=== PATIENT | female | born 2000 | race Caucasian/White ===

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

== ENCOUNTER → 2020-04-21 | Outpatient (CLI) | payer OTHER | LOC: LAB FS 10:37 | PROVIDERS: ATTEND Family Medicine | DX: Z20.828 Contact with and (suspected) exposure to other viral communicable diseases (principal) | CPT/HCPCS: 87635 ==

== ENCOUNTER → 2020-10-07 | Outpatient (CLI) | payer OTHER | LOC: LAB FS 07:23 | PROVIDERS: ATTEND Family Medicine | DX: U07.1 COVID-19 (principal) | CPT/HCPCS: 36415; 86769 ==

== ENCOUNTER → 2020-12-06 | Outpatient (CLI) | payer OTHER ==
--- NOTE | 2020-12-06 15:15 | Diagnostic Imaging Report ---
INDICATION: Left knee pain Three views of the left knee show postoperative changes from ACL reconstruction. There is no fracture or dislocation. There is no appreciable joint effusion. IMPRESSION: Postoperative changes from ACL reconstruction. No acute abnormality is seen. Joint spaces are well-maintained. Dictated by: Dictated on workstation # [id number]
== END ==
LOC: RAD FS 14:20
PROVIDERS: ATTEND Nurse Practitioner
DX: M25.562 Pain in left knee (principal); Z98.890 Other specified postprocedural states
CPT/HCPCS: 73562

== ENCOUNTER 2020-12-24 05:32 | Outpatient (RCR) | payer OTHER ==
[~2020-12-24] VITALS: Ht 157.5 cm; Wt 54.5 kg
== END 2020-12-24 13:19 | disposition home or self-care (01) ==
LOC: PREOP 05:32
PROVIDERS: ATTEND Orthopaedic Surgery
DX: Z01.818 Encounter for other preprocedural examination (principal)

== ENCOUNTER 2020-12-28 12:17 | Emergency (ER) | payer OTHER ==
[~2020-12-28] VITALS: Ht 157.4 cm; Wt 54.5 kg
[2020-12-28 12:28] VITALS: BP 110/69
[2020-12-28] MEDS ORDERED: ACHD5005 PO (12:28)
[2020-12-28] MEDS ORDERED: CARB200T6 PO (12:28)
[2020-12-28] MEDS ORDERED: PRD50T PO (12:28)
--- NOTE | 2020-12-28 12:28 | ED General ---
General Stated Complaint: FACIAL PAIN History of Present Illness Date Seen by Provider: Dec 28, 2020 Time Seen by Provider: 12:23 Initial Comments 20 y/o healthy female presents w progressive pain over the past 1.5 months occurring intermittently in her left jaw. Shooting type pain, that has become very intense in severity and lasts from a few minutes to 20 minutes and gradually resolves. Precipitated occasionally by touching or chewing. No previous Hx of similar episodes. No dental pain, although she has seen her dentist 2x, during over the course of this pain without any abnormal dental findings on exam of x-rays. No ear pain, no nasal congestion, no mouth lesions or trouble swallowing. NO neck pain or swelling. no visual changes, no headaches. No recent illness, feve r or chills. Allergies and Home Medications Allergies Coded Allergies: ceftriaxone (Verified Allergy, Unknown, fever, 12/24/20) amoxicillin (Verified Adverse Reaction, Unknown, yeast infection, 12/24/20) Home Medications Carbamazepine 200 Mg Tablet, 200 MG PO BID Prescribed by: JADE AGRAWAL on 12/28/20 1228 Hydrocodone/Acetaminophen 1 Each Tablet, 1 EACH PO Q4H Prescribed by: JADE AGRAWAL on 12/28/20 1228 Prednisone 50 Mg Tab, 50 MG PO DAILY Prescribed by: JADE AGRAWAL on 12/28/20 1228 Patient Home Medication List Home Medication List Reviewed: Yes Review of Systems Review of Systems Constitutional: no symptoms reported, see HPI EENTM: see HPI, ear pain, other (left jaw pain - intermittent and severe); No ear discharge, No hearing loss, No blurred vision, No double vision, No eye pain, No tearing, No vision loss, No dental problems, No hoarseness, No mouth pain, No mouth swelling, No epistaxis, No nose congestion, No nose pain, No throat pain, No throat swelling Respiratory: no symptoms reported Cardiovascular: no symptoms reported Gastrointestinal: No nausea, No vomiting Musculoskeletal: No back pain, No joint pain, No neck pain Skin: no symptoms reported; No change in color, No lesions, No lumps, No pruritus, No rash Psychiatric/Neurological: See HPI; Denies Anxiety, Denies Depressed, Denies Headache, Denies Numbness, Denies Paresthesia, Denies Seizure, Denies Tingling, Denies Tremors, Denies Weakness Past Grqcfbn-Renfea-Fisztb Hx Past Med/Social Hx: Reviewed Nursing Past Med/Soc Hx Patient Social History Recent Hopitalizations: No Seasonal Allergies Seasonal Allergies: No Past Medical History Surgeries: Yes (bmt, L ACL repair) Respiratory: No Cardiac: No Neurological: Yes (hx of febrile seizures) Genitourinary: No Gastrointestinal: No Musculoskeletal: Yes Endocrine: No HEENT: No Cancer: No Psychosocial: No Integumentary: No Blood Disorders: No Physical Exam Vital Signs Capillary Refill : Height, Weight, BMI Height: '" Weight: lbs. oz. kg; 21.97 BMI Method: General Appearance: No Apparent Distress, WD/WN Eyes: Bilateral Eye Normal Inspection, Bilateral Eye PERRL, Bilateral Eye EOMI HEENT: PERRL/EOMI, TMs Normal, Normal ENT Inspection, Pharynx Normal, Moist Mucous Membranes; No Tonsillar Exudate, No Tonsillar Enlargement; Other (tenderness anterior to Left tragus of ear (origin of TG nerve) . NO palpable abnl, although sensitive area) Neck: Full Range of Motion, Normal Inspection, Non Tender, Supple Neurologic/Psychiatric: Alert, Oriented x3, No Motor/Sensory Deficits, Normal Mood/Affect, academic specialist II-XII Norm as Tested; No EOM Palsy, No Facial Droop, No Motor Weakness, No Sensory Deficit Skin: Normal Color, Warm/Dry; No Erythema, No Rash Lymphatic: No Adenopathy Progress/Results/Core Measures Suspected Sepsis SIRS Temperature: Pulse: Respiratory Rate: Blood Pressure / Mean: Results/Orders Vital Signs/I&O Capillary Refill : Departure Impression Primary Impression: Trigeminal neuralgia of left side of face Disposition: 01 HOME, SELF-CARE Condition: Stable Departure-Patient Inst. Decision time for Depature: 12:29 Referrals: FÉLIX RETAAN MD (PCP/Family) Primary Care Physician Patient Instructions: Trigeminal Neuralgia Add. Discharge Instructions: see your PCP in 2 to 3 days for a follow up exam Scripts Prednisone (Prednisone) 50 Mg Tab 50 MG PO DAILY, #5 TAB Prov: ROVENSTINEJADE L DO 12/28/20 Hydrocodone/Acetaminophen (Hydrocodone-Acetamin 5-325 mg) 1 Each Tablet 1 EACH PO Q4H for Abdominal Pain, #10 TAB Prov: ROVENSTINE,JADE L DO 12/28/20 Carbamazepine (Carbamazepine) 200 Mg Tablet 200 MG PO BID, #90 TAB 3 Refills Prov: JADE AGRAWAL DO 12/28/20 JADE AGRAWAL DO Dec 28, 2020 12:28
[2020-12-29] MEDS ORDERED: ONDA4TAB11 PO (11:18)
[2020-12-29] MEDS ORDERED: HYDR-3817 PO (11:18)
== END 2020-12-28 12:35 | disposition home or self-care (01) ==
LOC: EDUNIT# 12:17 → ER FS 12:21
DX: G50.0 Trigeminal neuralgia (principal); R56.00 Simple febrile convulsions; Z79.52 Long term (current) use of systemic steroids; Z88.1 Allergy status to other antibiotic agents
CPT/HCPCS: 99283

== ENCOUNTER 2020-12-29 07:53 | Day surgery (SDC) | payer OTHER ==
--- NOTE | 2020-12-26 08:26 | HISTORY AND PHYSICAL ---
DATE OF SERVICE: This will be for outpatient surgery on 12/29/2020 for left tibia hardware removal. HISTORY OF PRESENT ILLNESS: The patient is a 20-year-old female who underwent a left ACL reconstruction a little over 2 years ago. She complains of pain at her tibial screw site. This area is prominent. She has tried rest and activity modifications without relief. Because of lack of improvement, the patient has elected to proceed with surgical intervention. REVIEW OF SYSTEMS: No chest pain, no shortness of breath, no dysuria. PAST MEDICAL HISTORY: Febrile seizure. PAST SURGICAL HISTORY: As above. [place] tooth extraction. Ear tube placement. FAMILY HISTORY: Noncontributory. PRIMARY CARE PROVIDER: . MEDICATIONS: None. ALLERGIES: ROCEPHIN AND AMOXICILLIN. SOCIAL HISTORY: The patient denies alcohol and tobacco use. PHYSICAL EXAMINATION: GENERAL: The patient is well developed, well nourished, in no acute distress. HEENT: Normocephalic, atraumatic. Pupils are equal, round, reactive to light. Oropharynx is clear. NECK: Supple, no lymphadenopathy. LUNGS: Clear to auscultation bilaterally. HEART: Regular rate and rhythm. ABDOMEN: Soft, nontender, nondistended. EXTREMITIES: The left lower extremity demonstrates well-healed incisions. She is tender over her tibial screw site, which is prominent. She has no joint line tenderness and her knee range of motion is full. She has no effusion. She is ligamentously stable in all planes. IMPRESSION: Symptomatic left tibia hardware. PLAN: Left tibial hardware removal. The risks, benefits, options, ramifications and recovery were discussed at length with the patient. She understands and wishes to proceed. Job ID: [id number] DocumentID: [id number] Dictated Date: 12/22/2020 11:27:19 Consultant Intern Date: 12/22/2020 11:39:46 Dictated By: ANGELO WONG MD
[~2020-12-29] VITALS: Ht 177.8 cm; Wt 79.5 kg
[2020-12-29] VITALS (11 sets, daily range): BP systolic 90–155; BP diastolic 41–80
[~2020-12-29 07:53] MED LIST: ACHD5005 PO; CARB200T6 PO; PRD50T PO
[2020-12-29] MEDS ORDERED: LACTATED RINGERS 1,000 ML IV PRN (08:00)
[2020-12-29] MEDS ORDERED: CLINDAMYCIN 600 MG/50 ML IVPB 50 ML IV ONE (08:00)
[2020-12-29] MEDS ORDERED: ONDANSETRON 4 MG/2 ML (SDV) Z0FRAN IV ONE (08:15)
[2020-12-29] MEDS ORDERED: SCOPOLAMINE 1.5 MG (TRANSDERM-SCOP) PATCH TOP ONE (08:15)
[2020-12-29] MEDS ORDERED: FAMOTIDINE 20MG/2ML IV (PEPCID) IV ONE (08:15)
[2020-12-29] MEDS ORDERED: morphine PF (DURAMORPH) 10 MG/10 ML AMP ONE (08:29)
[2020-12-29] MEDS ORDERED: BUPIVACAINE 0.25% 30 ML (SENSORCAINE) VIAL ONE (08:29)
[2020-12-29] MEDS ORDERED: ONDANSETRON 4 MG/2 ML (SDV) Z0FRAN ONE (08:32)
[2020-12-29] MEDS ORDERED: proPOfol 200 MG/20 ML (DIPRIVAN) VIAL IV ONE (08:32)
[2020-12-29] MEDS ORDERED: fentaNYL INJECTION 100 MCG/2 ML AMP ONE (08:32)
[2020-12-29] MEDS ORDERED: LIDOCAINE PF 2% 5 ML (XYLOCAINE) VIAL ONE (08:32)
[2020-12-29] MEDS ORDERED: MIDAZOLAM 2 MG/2 ML (VERSED) VIAL ONE (08:33)
[2020-12-29] MEDS ORDERED: SEVOFLURANE (ULTANE) 15 ML INHAL SOLN ONE ×2 (08:42→09:43)
--- NOTE | 2020-12-29 09:22 | Progress Note-Pre Operative ---
Pre-Operative Progress Note H&P Reviewed The H&P was reviewed, patient examined and no changes noted. Date Seen by Provider: Dec 29, 2020 Time Seen by Provider: 09:10 Date H&P Reviewed: Dec 29, 2020 Time H&P Reviewed: 07:11 Pre-Operative Diagnosis: symptomatic tibia hardware ANGELO WONG MD Dec 29, 2020 09:22
--- NOTE | 2020-12-29 09:24 | Progress Note-Post Operative ---
Post-Operative Progess Note Surgeon (s)/Diabetes Education Coordinator (s) Surgeon ANGELO WONG MD Diabetes Education Coordinator: Christian Chan Pre-Operative Diagnosis symptomatic left tibia hardware Post-Operative Diagnosis symptomatic left tibia hardware Procedure & Operative Findings Date of Procedure 12/29/20 Procedure Performed/Findings left tibia hardware removal Anesthesia Type GETA Estimated Blood Loss Estimated blood loss (mL): minimal Specimens/Packing Specimens Removed none Packing: none ANGELO WONG MD Dec 29, 2020 09:24
[2020-12-29] MEDS ORDERED: HYDROcodone/APAP 7.5 MG/325 MG (LORTAB, LORCET PLUS) TABLET PO PRN (09:30)
[2020-12-29] MEDS ORDERED: morphine INJ 10 MG/ML 1ML (SYR OR VIAL) IVP ONE (10:15)
[2020-12-29] MEDS ORDERED: MEPERIDINE (DEMEROL) INJ 50 MG/ML IVP ONE (10:15)
[2020-12-29] MEDS ORDERED: fentaNYL INJECTION 100 MCG/2 ML AMP IVP ONE (10:15)
--- NOTE | 2020-12-29 10:52 | Anesthesia-General Post-Op ---
General Patient Condition Mental Status/LOC: Same as Preop Cardiovascular: Satisfactory Nausea/Vomiting: Absent Respiratory: Satisfactory Pain: Controlled Complications: Absent Post Op Complications Complications None Follow Up Care/Instructions Patient Instructions None needed. Anesthesia/Patient Condition Patient Condition Patient is doing well, no complaints, stable vital signs, no apparent adverse anesthesia problems. No complications reported per nursing. RONNY GIBSON CRNA Dec 29, 2020 10:52
[2020-12-29] MEDS ORDERED: HYDR-3817 PO (11:18)
[2020-12-29] MEDS ORDERED: ONDA4TAB11 PO (11:18)
--- NOTE | 2020-12-29 13:10 | OPERATIVE REPORT ---
DATE OF SERVICE: 12/29/2020 PREOPERATIVE DIAGNOSIS: Symptomatic left tibia hardware. POSTOPERATIVE DIAGNOSIS: Symptomatic left tibia hardware. PROCEDURE PERFORMED: Hardware removal of the left tibia. SURGEON: Ryan Wong MD. CROSSING TENDER: Christian Chan, who assisted throughout the procedure and closed the incision. ANESTHESIA: General endotracheal by Christian Panchal CRNA. TOURNIQUET TIME: Not applicable. ESTIMATED BLOOD LOSS: Minimal. DRAINS: None. COMPLICATIONS: None. POSTOPERATIVE PLAN: Progressive activities as symptoms allow. The patient was transferred to the recovery room awake and in stable condition. STATEMENT OF MEDICAL NECESSITY: The patient is a 20-year-old female, who little over two years ago underwent left ACL reconstruction and has done well from this; however, she complained of prominence at her tibial screw site. On exam, she had tenderness over her prominent tibial screw, but there is no erythema or warmth. She had tried rest and activity modifications without relief. She has negative Byron, negative pivot shift and no symptoms of instability, but due to continued pain, the patient elected to proceed with surgical removal. DESCRIPTION OF PROCEDURE: After risks and benefits of procedure were discussed and questions were answered, informed consent was signed and placed on the chart and the operative site was confirmed in the preoperative holding area initialed by the surgeon. The patient was transferred to the operating room. After adequate levels of general endotracheal anesthetic were obtained, a timeout was called, confirming the operative site. The left lower extremity was prepped and draped in the usual sterile fashion. The patient had a negative Byron, negative anterior drawer, and negative pivot shift. An incision was made directly over her screw site. This was carefully dissected. The screw was identified and easily removed without difficulty. Her knee was stable following screw removal with a negative pivot shift, negative anterior drawer, and negative Byron. The wound was copiously irrigated and closed with 3-0 nylon in vertical mattress interrupted fashion. The incision was infiltrated with plain Marcaine and soft dressing was applied. The patient was transferred to the recovery room awake and in a stable condition. Job ID: [id number] DocumentID: [id number] Dictated Date: 12/29/2020 10:02:41 Crisis Intervention Counselor Date: 12/29/2020 13:09:50 Dictated By: RYAN WONG MD
== END 2020-12-29 11:50 | disposition home or self-care (01) ==
LOC: SDC 07:53
PROVIDERS: ATTEND Orthopaedic Surgery
DX: T85.848A Pain due to other internal prosthetic devices, implants and grafts, initial encounter (principal); Z98.890 Other specified postprocedural states; Z88.1 Allergy status to other antibiotic agents; Z96.22 Myringotomy tube(s) status
CPT/HCPCS: 84703; 87081

== ENCOUNTER → 2021-12-28 | Outpatient (CLI) | payer OTHER ==
[~2021-12-28] MED LIST changes: +HYDR-3817 PO; +ONDA4TAB11 PO
--- NOTE | 2021-12-28 13:16 | Diagnostic Imaging Report ---
INDICATION: Left breast pain. Sonographic interrogation of the area of pain was performed. This primarily involves the lower half of the left breast from 3-9 o'clock. This area was evaluated. No sonographic abnormality is detected. No solid or cystic mass is detected. IMPRESSION: No sonographic abnormality is identified. ACR BI-RADS Category 1: Negative. Result letter will be mailed to the patient. Note: At least 10% of breast cancer is not imaged by mammography. BI-RADS Category 1 Dictated by: Dictated on workstation # [id number]
== END ==
LOC: RAD 12:45
PROVIDERS: ATTEND Family Medicine
DX: N64.4 Mastodynia (principal)
CPT/HCPCS: 76642

== ENCOUNTER → 2023-06-12 | Outpatient (CLI) | payer OTHER ==
--- NOTE | 2023-06-12 15:12 | Diagnostic Imaging Report ---
PROCEDURE: Pelvic comp/transvaginal sonogram. TECHNIQUE: Complete transabdominal and transvaginal pelvic ultrasound was performed. In addition, limited pelvic Doppler was performed. INDICATION: Abnormal uterine bleeding. FINDINGS: Uterus measures 7.2 x 4.9 x 2.7 cm. Endometrium is 10 mm in thickness. No myometrial mass is detected. Right ovary measures 4.3 x 2.2 x 2.5 cm, and left ovary measures 2.8 x 1.8 x 1.8 cm. Right ovary does contain a 2.3 cm dominant follicle or cyst. There are additional smaller follicles within the right ovary. Left ovary contains small follicles. There is blood flow to both ovaries. No free fluid is detected. IMPRESSION: 2.3 cm dominant follicle or cyst in the right ovary. The study is otherwise unremarkable. Dictated by: Dictated on workstation # [id number]
== END ==
LOC: RAD FS 13:26
PROVIDERS: ATTEND Nurse Practitioner Women's Health
DX: N93.9 Abnormal uterine and vaginal bleeding, unspecified (principal)
CPT/HCPCS: 76830; 76856